=== PATIENT | female | born 1975 | race African-American/Black ===

== ENCOUNTER 2017-02-25 01:01 | Emergency (ER) | payer BC ==
[~2017-02-25] VITALS: Ht 177.8 cm; Wt 78.9 kg
[~2017-02-25 01:01] MED LIST: ADDERALL 30 MG30 MG
[2017-02-25 01:14] LABS: BASOPHILS % 0.5 % (0.0-1.0); EOSINOPHILS % 0.6 % (0.0-6.0); HEMATOCRIT 37.3 % (34.2-44.1); HEMOGLOBIN 12.4 g/dL (12.0-16.0); LYMPHOCYTES # (AUTO) 2.4 (1.0-3.2); LYMPHOCYTES % 35.9 % (18.0-39.1); MEAN CORPUSCULAR HEMOGLOBIN 28.6 pg (28-32); MEAN CORPUSCULAR HGB CONC 33.2 g/dL (31-35); MEAN CORPUSCULAR VOLUME 86.1 fL (81-99); MONOCYTES # (AUTO) 0.4 (0.2-0.8); MONOCYTES % 6.1 % (4.4-11.3); NEUTROPHILS # (AUTO) 3.7 (2.1-6.9); NEUTROPHILS % 56.6 % (38.7-80.0); PLATELET COUNT 347 x10e3/uL (140-360); RED BLOOD COUNT 4.33 x10e6/uL (3.6-5.1); RED CELL DISTRIBUTION WIDTH 12.3 % (11.7-14.4)
[2017-02-25] MEDS ORDERED: METOPROLOL TARTRATE INJ 1 MG/ML VIAL IV ONE (01:15)
[2017-02-25] MEDS ORDERED: SODIUM CHLORIDE 0.9% 1000ML 1,000 ML IV ONE (01:15)
[2017-02-25 01:34] LABS: ALANINE AMINOTRANSFERASE 14 IU/L (0-55); ALBUMIN 3.8 g/dL (3.5-5.0); ALBUMIN/GLOBULIN RATIO 0.8 (0.8-2.0); ALKALINE PHOSPHATASE 72 IU/L (40-150); ANION GAP 14.3 mmol/L (8-16); BLOOD UREA NITROGEN 9 mg/dL (7-26); BUN/CREATININE RATIO 8 (6-25); CALCIUM 8.7 mg/dL (8.4-10.2); CARBON DIOXIDE 21 mmol/L (22-29); CHLORIDE 106 mmol/L (98-107); CREATINE KINASE 394 IU/L (29-168); CREATININE, SERUM 1.07 mg/dL (0.57-1.11); EST GLOMERULAR FILTRATION RATE > 60 ML/MIN (60-); GLUCOSE 112 mg/dL (74-118); POTASSIUM 3.3 mmol/L (3.5-5.1); SODIUM 138 mmol/L (136-145)
--- NOTE | 2017-02-25 01:39 | Diagnostic Imaging Report ---
CHEST SINGLE (PORTABLE), 02/25/2017 1:03 AM Technique: CHEST SINGLE (PORTABLE) Comparison: 02/13/2015 Clinical history: Palpitations Findings: Unremarkable appearance of the heart, mediastinum, lungs and pleural spaces. Impression: 1. Lines/Tubes: None 2. No acute abnormality. Signed by: Dr Estella Marquez MD on 02/25/2017 1:35 AM
[2017-02-25 01:49] LABS: TROPONIN I 0.006 ng/mL (0-0.300)
[2017-02-25 01:57] LABS: FREE THYROXINE INDEX 1.6944 (1.4-3.8); T3 UPTAKE 24.31 % (22.50-37.00); THYROID STIMULATING HORMONE 0.953 uIU/mL (0.350-4.940)
--- NOTE | 2017-02-25 02:36 | Diagnostic Imaging Report ---
EXAM: CT CHEST W DATE: 02/25/2017 1:42 AM INDICATION: Palpitations COMPARISON: None TECHNIQUE: Multidetector CT scanning of the chest was performed. Coronal and sagittal multiplanar reformations were obtained. IV Contrast: 100 ml [id number] FINDINGS: LUNGS AND PLEURA: No consolidations or edema. Incidental left timothy-fissural nodules. No effusions or pneumothorax. HEART, MEDIASTINUM, VESSELS: Normal heart size, great vessel caliber. Main pulmonary artery is normal in size. No evidence of acute pulmonary artery embolism. No pericardial effusion. There are no pathologically enlarged nodes. UPPER ABDOMEN: Unremarkable MUSCULOSKELETAL: Anterior bridging osteophytes of the thoracic spine. Bilateral breast implants. IMPRESSION: No pulmonary embolism or other acute abnormality. Signed by: Dr Estella Marquez MD on 02/25/2017 2:33 AM
[2017-02-25] MEDS ORDERED: IOPAMIDOL 370 MG/ML 200 ML INFUS..BTL INJ ONE (02:52)
[2017-02-25] MEDS ORDERED: SODIUM CHLORIDE 0.9% 50ML 50 ML ONE (02:52)
== END 2017-02-25 03:28 | disposition home or self-care (01) ==
LOC: ER 01:01
DX: R00.2 Palpitations (principal); I47.1 Supraventricular tachycardia
CPT/HCPCS: 36415; 71010; 71260; 80053; 82550; 82553; 83036; 84436; 84443; 84479; 84484; 84702; 85025; 85379; 93005; 96360; 96374; 99284; J7030; Q9967

== ENCOUNTER → 2017-03-03 | Outpatient (CLI) | payer BC ==
--- NOTE | 2017-03-13 23:59 | Cardiology Report ---
DATE OF STUDY: March 11, 2017 24-HOUR HOLTER MONITOR REPORT INDICATION: Palpitations. The 24-hour Holter monitoring was performed with excellent reproduction of data. The predominant rhythm is sinus. Minimum heart rate 59 beats and maximum heart rate 130 beats a minute. Average heart rate 78 beats a minute. No pauses. Rare supraventricular and ventricular ectopy were noted. No atrial fibrillation. CONCLUSIONS: Normal 24-hour Holter monitoring. Job#: [id number]
== END ==
LOC: RAD 06:13
PROVIDERS: ATTEND Internal Medicine Interventional Cardiology
DX: R00.2 Palpitations (principal)
CPT/HCPCS: 93225; 93306